=== PATIENT | female | born 1990 | race Two or more races ===

== ENCOUNTER 2017-08-01 03:27 | Emergency (ER) | payer BC ==
[2017-08-01 03:57] VITALS: BP 154/96; PULSE 87; RESP 16; TEMP 98.1; O2SAT 99; BMI 23.1
--- NOTE | 2017-08-01 04:06 | ED PDOC ---
HPI: Abdomen Chief Complaint (Provider): "i have stomach pain with nausea radiating to my chest" History Per: Patient History/Exam Limitations: no limitations <Polo Banks - Last Filed: 08/01/17 04:20> <Rodrigue Muñoz - Last Filed: 08/03/17 03:18> Time Seen by Provider: 08/01/17 03:38 Chief Complaint (Nursing): Chest Pain Additional Complaint(s): 27 y/o female, with no significant medical history presents for evaluation of epigastric pain and nausea. Pt reports symptoms started approx 1 hour ago. Pain is located in the epigastric region, radiates up to her chest. Symptoms are associated with nausea. Pain is 6/10, and intermittent. She reports she maybe having a panic attack but is unsure of the last time she had one. Reports drinking 7-8 alcoholic drinks today during brunch. Denies drugs/NSAIDS. No fci medication usage. No fever/chills, headaches, changes in vision, V/D/C, urinary symptoms. (Polo Banks) Supervising Attending Note - Supervising Attending Note The Documented history was done by the: Physician Bung Remover The documented physical exam was done by the: Physician Bung Remover - Attestation: I have personally seen and examined this patient.: Yes I have fully participated in the care of the patient.: Yes I have reviewed all pertinent clinical information: Yes <Rodrigue Muñoz - Last Filed: 08/03/17 03:18> Past Medical History Reviewed: Nursing Documentation, Vital Signs - Medical History PMH: Denies: Diabetes, Hepatitis, HIV, HTN, Seizures, Sexually Transmitted Disease - Family History Family History: States: Unknown Family Hx <Polo Banks - Last Filed: 08/01/17 04:20> <Rodrigue Muñoz - Last Filed: 08/03/17 03:18> Vital Signs: Last Vital Signs Temp 98.1 F 08/01/17 03:42 Pulse 87 08/01/17 03:42 Resp 16 08/01/17 03:42 BP 154/96 H 08/01/17 03:42 Pulse Ox 99 08/01/17 04:25 - Allergies Allergies/Adverse Reactions: Allergies Allergy/AdvReac Type Severity Reaction Status Date / Time Sulfa (Sulfonamide Allergy RASH Verified 08/01/17 03:54 Antibiotics) Review of Systems Constitutional: Negative for: Fever, Chills, Sweats, Weakness, Malaise Cardiovascular: Positive for: Chest Pain. Negative for: Palpitations, Orthopnea , Paroxysmal Noc. Dyspnea, Edema Respiratory: Negative for: Cough, Shortness of Breath, Hemoptysis, SOB with Exertion, Pleuritic Pain, Sputum, Wheezing Gastrointestinal: Positive for: Nausea, Abdominal Pain. Negative for: Vomiting , Diarrhea, Constipation, Melena, Hematochezia, Hematemesis Skin: Negative for: Rash, Jaundice Neurological: Negative for: Weakness, Numbness, Incoordination, Change in Speech , Confusion, Seizures, Altered Mental Status, Headache, Dizziness Psych: Negative for: Anxiety, Depression <Polo Banks - Last Filed: 08/01/17 04:20> Physical Exam - Reviewed Nursing Documentation Reviewed: Yes Vital Signs Reviewed: Yes - Physical Exam Appears: Positive for: Non-toxic, No Acute Distress Head Exam: Positive for: ATRAUMATIC, NORMAL INSPECTION, NORMOCEPHALIC Skin: Positive for: Warm, Dry. Negative for: Pallor Eye Exam: Positive for: EOMI, PERRL. Negative for: Conjunctival injection ENT: Positive for: Normal ENT Inspection Neck: Positive for: Normal, Painless ROM, Supple. Negative for: Decreased ROM Cardiovascular/Chest: Positive for: Regular Rate, Rhythm, Chest Non Tender. Negative for: Edema, Gallop, JVD, Murmur, Tachycardia, Irregularly Irregular Respiratory: Positive for: Normal Breath Sounds. Negative for: Decreased Breath Sounds, Accessory Muscle Use, Crackles, Rales, Rhonchi Pulses-Carotid (L): 2+ Pulses-Carotid (R): 2+ Pulses-Radial (L): 2+ Pulses-Radial (R): 2+ Gastrointestinal/Abdominal: Positive for: Bowel Sounds, Soft, Tenderness ( epigastric region ). Negative for: Organomegaly, Mass, Distended, Guarding, Rebound Back: Negative for: L CVA Tenderness, R CVA Tenderness Lymphatic: Negative for: Adenopathy Neurologic/Psych: Positive for: Alert, chief solution architect II-XII, Oriented, Gait (steady). Negative for: Motor/Sensory Deficits <Polo Banks - Last Filed: 08/01/17 04:20> - ECG O2 Sat by Pulse Oximetry: 99 <Polo Banks - Last Filed: 08/01/17 04:20> <Rodrigue Muñoz - Last Filed: 08/03/17 03:18> - Progress ED Course And Treament: pancreatitis/gastritis/gastroenteritis/etoh abuse/anxiety EKG CBC CMP LIPASE UDS UPREG 20MG PEPCID IVP RE-EVALUATE EKG: NSR, 97 BPM, normal axis, normal [place], no acute st-changes upon completion of EKG, pt declined any further workup advised pt that if symptoms were to return or worsen, to return to ED for further evaluation (Polo Banks) Disposition - Patient ED Disposition Is Patient to be Admitted: No - Disposition Disposition: Routine/Home Disposition Time: 04:22 <Polo Banks - Last Filed: 08/01/17 04:20> <Rodrigue Muñoz - Last Filed: 08/03/17 03:18> - Clinical Impression Clinical Impression: Epigastric abdominal pain, Atypical chest pain - Disposition Referrals: [facility] [Outside] Condition: GOOD Additional Instructions: follow up with a primary medical doctor in 2-3 days drink plenty of fluids take pepcid as needed if symptoms such as vomiting, fever, chills or worsening chest pain return, return to ED for further work up Instructions: Chest Pain (DC), Nausea and Vomiting, Adult Forms: [facility] (Spanish)
== END 2017-08-01 04:40 | disposition home or self-care (01) ==
LOC: H.ER 03:27
DX: R10.13 Epigastric pain (principal); R07.9 Chest pain, unspecified